=== PATIENT | male | born 1965 | race Caucasian/White ===

== ENCOUNTER 2017-10-24 03:12 | Emergency (ER) | payer BC ==
[~2017-10-24] VITALS: Ht 175.3 cm; Wt 77.1 kg
[2017-10-24 03:18] VITALS: BP 135/71
[2017-10-24] MEDS ORDERED: HYDROCODONE/APAP 10/325MG 1 EA TABLET ONE (03:51)
[2017-10-24] MEDS ORDERED: HYDROCODONE/APAP 10/325MG 1 EA TABLET PO ONE (04:00)
== END 2017-10-24 03:58 | disposition home or self-care (01) ==
LOC: ER 03:17
DX: S52.591A Other fractures of lower end of right radius, initial encounter for closed fracture (principal); W10.8XXA Fall (on) (from) other stairs and steps, initial encounter; Y93.89 Activity, other specified; Y92.89 Other specified places as the place of occurrence of the external cause; Y99.8 Other external cause status
CPT/HCPCS: 73110; A4606; Z7610

== ENCOUNTER 2017-11-18 15:59 | Emergency (ER) | payer BC ==
[~2017-11-18] VITALS: Ht 175.3 cm; Wt 83.9 kg
--- NOTE | 2017-11-18 16:05 | NUR ---
AAOX3, CAME TO ER C/O BLURRY VISION AND FELT CONFUSED 1HR AGO POST ADVIL/MOTRIN ADMINISTRATION. RR IS EVEN AND UNLABORED WITH NAD NOTED. SKIN IS WARM AND DRY. NEURO INTACT WITH NO FOCAL DEFICIT. AWAITING MD FOR EVAL.
[2017-11-18 16:50] LABS: BASOPHILS % (AUTO) 0.5 % (0.0-2.0); EOSINOPHILS % (AUTO) 1.3 % (0.0-6.0); HEMATOCRIT 43 % (39-51); HEMOGLOBIN 14.8 g/dL (13.5-17.5); LYMPHOCYTES # (AUTO) 1.1 /CMM (0.8-4.8); LYMPHOCYTES % (AUTO) 21.2 % (20.0-44.0); MEAN CORPUSCULAR HGB CONC 35 g/dl (31.0-36.0); MEAN CORPUSCULAR VOLUME 93 fL (80-96); MONOCYTES # (AUTO) 0.4 /CMM (0.1-1.30); MONOCYTES % (AUTO) 8.3 % (2.0-12.0); NEUTROPHILS # (AUTO) 3.7 /CMM (1.8-8.9); NEUTROPHILS % (AUTO) 68.7 % (43.0-81.0); PLATELET COUNT (AUTO) 177 /CMM (150-450); RDW COEFFICIENT OF VARIATION 12.6 (11.5-15.0); RED BLOOD CELL COUNT(AUTO) 4.61 MIL/uL (4.5-6.0); WHITE BLOOD COUNT (AUTO) 5.4 K/uL (4.3-11.0)
[2017-11-18 16:59] LABS: CALCIUM, SERUM 8.7 mg/dL (8.5-10.1); CARBON DIOXIDE 27 mmol/L (21-32); CHLORIDE 103 mmol/L (98-107); CREATININE 0.9 mg/dL (0.6-1.3); GLUCOSE 97 mg/dL (74-106); POTASSIUM 3.7 mmol/L (3.5-5.1); SODIUM SERUM 138 mmol/L (136-145); UREA NITROGEN, BLOOD 26 mg/dL (7-18)
[2017-11-18 17:03] LABS: CHOLESTEROL 222 mg/dL (<200); HDL CHOLESTEROL 51 mg/dL (40-60); LDL 145 mg/dL (0-99); TRIGLYCERIDES 155 mg/dL (30-150)
[2017-11-18 17:08] LABS: INR 0.99 (0.87-1.13)
[2017-11-18 17:12] LABS: TROPONIN I < 0.017 ng/mL (0.00-0.056)
[2017-11-18] MEDS ORDERED: IV NS 0.9% 1,000 ML BAG IV ONE (18:00)
--- NOTE | 2017-11-18 19:05 | NUR ---
REPORT GIVEN TO ED, ANTENNA MACHINE OPERATOR RN FOR DENNIS.
[2017-11-18 19:46] VITALS: BP 137/76
--- NOTE | 2017-11-18 19:46 | NUR ---
IV removed. Catheter intact and site benign. Pressure and 4x4 applied to site. No bleeding noted. Patient discharged to home in stable condition. Written and verbal after care instructions given. Patient verbalizes understanding of instruction. ambulatory with a steady gait noted. pt aaox4 no acute distress noted, resp even and unlabored. pt denies pain or discomfort at this time.
== END 2017-11-18 19:47 | disposition home or self-care (01) ==
LOC: ER 16:02
DX: F41.9 Anxiety disorder, unspecified (principal); H53.8 Other visual disturbances; R00.2 Palpitations; T39.315A Adverse effect of propionic acid derivatives, initial encounter; Z60.2 Problems related to living alone; Y92.89 Other specified places as the place of occurrence of the external cause
CPT/HCPCS: 36415; 70450-TC; 71045-TC; 80048-TC; 80061-TC; 80305; 84484-TC; 85025-TC; 85730-TC; A4606; J7030; Z7610

== ENCOUNTER 2018-09-09 13:45 | Emergency (ER) | payer BC ==
[~2018-09-09] VITALS: Ht 165.1 cm; Wt 74.8 kg
[2018-09-09] MEDS ORDERED: LORAZEPAM INJ 2 MG/ML VIAL IV ONE (14:30)
[2018-09-09] MEDS ORDERED: IV NS 0.9% 1,000 ML BAG IV ONE (14:30)
--- NOTE | 2018-09-09 14:40 | NUR ---
Anxiety, Throat problems "Had nose/throat surgery on 3/- Tonsillectomy having problem swallowing - hurts. Having lots of anxiety". PT AAOX4, VSS. DENIES CP, SOB, DIZZINESS, N/V @ THIS TIME. PT SEEN & EVAL'D BY DR. BAKER. WILL CONT TO MONITOR.
[2018-09-09] MEDS ORDERED: LORAZEPAM INJ 2 MG/ML VIAL ONE (14:41)
[2018-09-09 14:46] LABS: BASOPHILS % (AUTO) 0.2 % (0.0-2.0); EOSINOPHILS % (AUTO) 0.1 % (0.0-6.0); HEMATOCRIT 46 % (39-51); HEMOGLOBIN 15.8 g/dL (13.5-17.5); LYMPHOCYTES # (AUTO) 0.7 /CMM (0.8-4.8); LYMPHOCYTES % (AUTO) 7.2 % (20.0-44.0); MEAN CORPUSCULAR HGB CONC 34 g/dl (31.0-36.0); MEAN CORPUSCULAR VOLUME 96 fL (80-96); MONOCYTES # (AUTO) 0.9 /CMM (0.1-1.30); NEUTROPHILS # (AUTO) 8.6 /CMM (1.8-8.9); NEUTROPHILS % (AUTO) 83.5 % (43.0-81.0); PLATELET COUNT (AUTO) 181 /CMM (150-450); RED BLOOD CELL COUNT(AUTO) 4.81 MIL/uL (4.5-6.0); WHITE BLOOD COUNT (AUTO) 10.3 K/uL (4.3-11.0)
[2018-09-09 14:52] LABS: CALCIUM, SERUM 9.6 mg/dL (8.5-10.1); CREATININE 0.8 mg/dL (0.6-1.3); POTASSIUM 4.1 mmol/L (3.5-5.1)
--- NOTE | 2018-09-09 15:50 | NUR ---
Patient discharged to home in stable condition. Written and verbal after care instructions given. Patient verbalizes understanding of instruction. IV removed. Catheter intact and site benign. Pressure and 4x4 applied to site. No bleeding noted.
[2018-09-09 15:51] VITALS: BP 132/80
== END 2018-09-09 15:52 | disposition home or self-care (01) ==
LOC: ER 13:51
DX: E86.0 Dehydration (principal); F41.9 Anxiety disorder, unspecified; Z90.89 Acquired absence of other organs; Z60.2 Problems related to living alone
CPT/HCPCS: 36415; 80048; 85025; 96361; 96374; 99283; A4606; J2060; J7030